=== PATIENT | male | born 1950 | race Caucasian/White ===

== ENCOUNTER → 2022-03-07 | Outpatient (CLI) | payer MEDICARE | LOC: COL.RAD 07:30 | DX: F17.290 Nicotine dependence, other tobacco product, uncomplicated (principal) ==

== ENCOUNTER → 2022-04-11 | Outpatient (CLI) | payer MEDICARE | LOC: COL.RAD 14:34 | DX: Z12.2 Encounter for screening for malignant neoplasm of respiratory organs (principal); J43.9 Emphysema, unspecified; Z87.891 Personal history of nicotine dependence ==